=== PATIENT | female | born 1990 | race Caucasian/White ===

== ENCOUNTER 2017-01-22 08:54 | Day surgery (SDC) | payer OTHER, SELFPAY ==
--- OUTSIDE RECORDS SUMMARY | 2017-01-22 09:04 | XMS | Continuity of Care Document ---
:1990 Author Organization [facility] Care Team Providers Name Role Phone ARNOLDO KERR Primary Care Physician Unavailable Insurance Providers Payer Name Policy Number Subscriber Name Relationship MEDICAID PENDING BHARAT BONNER SELF/SAME PATIENT JOELLEN CARE PENDING BAHRAT BONNER SELF/SAME PATIENT Advance Directives Directive Response Recorded Date/Time Advance Directive? N 12/03/15 10:38am Living Will? N 12/03/15 10:38am Health Care Proxy? N 12/03/15 10:38am Healthcare Power of Counter Helper? N 12/03/15 10:38am Is the patient an Organ Donor? N 12/03/15 10:38am Chief Complaint and Reason for Visit Reason for Visit VAG BLEEDING [id number] Problems Active Medical Problems Problem Onset Date Recorded Date Status Vaginal bleeding, abnormal Unknown 12/03/15 Active Medications Current Home Medications Medication Dose Units Route Directions Days/Qty Instructions Start Date No Current Medications (NO CURRENT MEDICATIONS) 1 EACH . Social History Query Response Start Date Stop Date Smoking Status: Unknown Hospital Discharge Instructions No hospital discharge instructions. Plan of Care Discharge Date 12/03/15 Disposition HOME/SELF CARE Condition at Discharge STABLE Instructions/Education Provided DI for Vaginal Bleeding Forms Provided Discharge Form Prescriptions See Medications Section Referrals ARNOLDO KERR - Additional Instructions/Education DRINK PLENTY OF WATER, FOLLOW UP WITH AN OB/ COMMUNITY DIETITIAN DOCTOR ON SATURDAY, NEGATIVE TEST, NO URINARY TRACT INFECTION, BLOOD LEVELS ARE NORMAL AND STABLE, RETURN TO ER FOR ANY CONCERNS Functional Status No functional status results. Allergies, Adverse Reactions, Alerts No known allergies. Immunizations No Known History of Immunizations. Vital Signs Vital Reading Collection Date/Time Result Blood Pressure 12/03/15 11:31am 125/85 Patient Temperature 12/03/15 11:31am 97.4 Temperature Source 12/03/15 9:58am Tympanic Pulse Rate 12/03/15 11:31am 86 Bedside Pulse Oximetry 12/03/15 11:31am 98 Height 12/03/15 9:58am 152.40 cm Height 12/03/15 9:58am 5 ft 0.00 in Weight 12/03/15 9:58am 68.039 kg Weight 12/03/15 9:58am 150 lb 0.00 oz Body Mass Index 12/03/15 9:58am 29.3 Results Laboratory Results Test Name Result Units Flags Reference Collection Result Comments Date/Time Date/Time White Blood 8.9 K/uL 4.8-10.8 12/03/15 12/03/15 Count 10:21am 10:47am Red Blood Count 4.94 M/uL 3.70-5.40 12/03/15 12/03/15 10:21am 10:47am Hemoglobin 14.4 g/dL 12.0-16.0 12/03/15 12/03/15 10:21am 10:47am Hematocrit 41.9 % 37.0-47.0 12/03/15 12/03/15 10:21am 10:47am Mean 84.8 fl 80.0-100.0 12/03/15 12/03/15 Corpuscular 10:21am 10:47am Volume Mean 29.2 pg 27.0-31.0 12/03/15 12/03/15 Corpuscular 10:21am 10:47am Hemoglobin Mean 34.4 g/dL 32.0-36.0 12/03/15 12/03/15 Corpuscular Hgb 10:21am 10:47am Concent Diff Red Cell 14.0 % 11.5-14.5 12/03/15 12/03/15 Distribution 10:21am 10:47am Width Platelet Count 359 K/uL 130-400 12/03/15 12/03/15 10:21am 10:47am Mean Platelet 8.4 fl 12/03/15 12/03/15 Volume 10:21am 10:47am Granulocytes 63.7 % 50.0-75.0 12/03/15 12/03/15 (%) 10:21am 10:47am Lymphocytes % 27.1 % 20.0-40.0 12/03/15 12/03/15 10:21am 10:47am Monocytes % 5.0 % 0.0-15.0 12/03/15 12/03/15 10:21am 10:47am Eosinophils % 3.7 % 0.0-10.0 12/03/15 12/03/15 10:21am 10:47am Basophils % 0.5 % 0.0-2.0 12/03/15 12/03/15 10:21am 10:47am Granulocytes # 5.7 K/uL 1.8-6.4 12/03/15 12/03/15 10:21am 10:47am Lymphocytes # 2.4 K/uL 1.2-3.6 12/03/15 12/03/15 10:21am 10:47am Monocytes # 0.4 K/uL 0.3-0.9 12/03/15 12/03/15 10:21am 10:47am Eosinophils # 0.3 K/ul 0.0-0.5 12/03/15 12/03/15 10:21am 10:47am BASO # 0.0 K/uL 0.0-0.2 12/03/15 12/03/15 10:21am 10:47am Manual NO 12/03/15 12/03/15 Differential 10:21am 10:47am Urine HCG, NEGATIVE NEGATIVE 12/03/15 12/03/15 If a negative result is obtained but is Qualitative 10:04am 10:18am suspected, hCG levels may be too low or urine may be too dilute for detection. Another specimen should be collected after 48-72 hours and tested. If waiting is not medically advisable, the test result should be confirmed with a quantitative hCG test. Urine Color YELLOW YELLOW 12/03/15 12/03/15 10:04am 10:29am Urine CLEAR CLEAR 12/03/15 12/03/15 Appearance 10:04am 10:29am Urine Glucose NEGATIVE mg/dL NEGATIVE 12/03/15 12/03/15 10:04am 10:29am Urine Bilirubin NEGATIVE NEGATIVE 12/03/15 12/03/15 10:04am 10:29am Urine Ketones NEGATIVE NEGATIVE 12/03/15 12/03/15 10:04am 10:29am Urine Specific 1.010 1.002-1.030 12/03/15 12/03/15 [place] 10:04am 10:29am Urine Blood MODERATE A NEGATIVE 12/03/15 12/03/15 10:04am 10:29am Urine pH 6.5 4.5-8.0 12/03/15 12/03/15 10:04am 10:29am Urine Protein NEGATIVE mg/dL NEGATIVE 12/03/15 12/03/15 10:04am 10:29am Urine 0.2 E.U./dL 0.2 12/03/15 12/03/15 Urobilinogen 10:04am 10:29am Urine Nitrite NEGATIVE NEGATIVE 12/03/15 12/03/15 10:04am 10:29am Urine Leukocyte NEGATIVE NEGATIVE 12/03/15 12/03/15 Esterase 10:04am 10:29am Urine YES NO 12/03/15 12/03/15 Microscopic 10:04am 10:29am Indicated Procedures No Known History of Procedures. Encounters Encounter Location Arrival/Admit Date Discharge/Depart Date Attending Provider Departed [place] 12/03/15 9:51am 12/03/15 11:31am Joe Zavala [facility] Encounter Diagnosis Abnormal vaginal bleeding
[2017-01-22 09:35] LABS: Bilirubin Negative (Negative); Blood, Urine Trace (Negative); Glucose, Urine (Dipstick) Negative (Negative); Ketone, Urine Negative (Negative); Nitrite Negative (Negative); Protein, Urine (Dipstick) Negative (Neg-Trace); Urobilinogen 0.2 mg/dL (0.2-1.0)
[2017-01-22 09:46] LABS: Bacteria/HPF 3+ HPF (None Seen); RBC/HPF 0-3 HPF (0-3)
[2017-01-22 09:46] LABS: ALT (SGPT) 10 U/L (8-55); AST (SGOT) 14 U/L (5-34); Alkaline Phosphatase 56 U/L (40-150); Anion Gap 11 mmol/L (10-20); BUN (Urea Nitrogen) 7 mg/dL (7.0-18.7); Bilirubin, Total 0.6 mg/dL (0.2-1.2); Calc. Creatinine Clearance 0 mL/min (70-130); Calcium 9.3 mg/dL (7.8-10.44); Carbon Dioxide 27 mmol/L (22-29); Chloride 104 mmol/L (98-107); Estimated GFR-MDRD Greater than 90; Globulin 2.7 g/dL (2.4-3.5); White Blood Cell (WBC) Count 22.5 thou/uL (4.8-10.8)
[2017-01-22 09:47] LABS: Band 2 % (5-11); Neutrophil 86 % (42-75)
[2017-01-22 09:47] LABS: Hyaline Casts/LPF 0-3 HYALINE CAST LPF (0-3 Hyaline)
[2017-01-22] MEDS ORDERED: Ondansetron HCl/PF 4 MG/2 ML Vial ONE ×2 (09:53→13:33)
--- NOTE | 2017-01-22 11:32 | CT ---
ABDOMEN AND PELVIC CT SCAN WITH IV CONTRAST: Date: 01/22/17 HISTORY: 26-year-old female with right lower quadrant abdominal pain since this morning. Prior history of jogre lonephritis. FINDINGS: Lung bases are clear. Visualized liver, pancreas, spleen, and adrenal glands are unremarkable. The g allbladder has numerous gallstones within it, but without evidence for pericholecystic fluid or wall thickening. No renal calculi or acute obstruction. The cecal tip and origin of the appendix is a bnormally thickened with thick-walled appendix measuring approximately 0.8 cm in outer dimension wit hout evidence for air within the appendix. No obvious abscess, but findings are certainly concerning for acute appendicitis. Bilateral status post Essure fallopian tube surgical changes. Minimal cul-d e-sac fluid. No bowel obstruction, abscess, or adenopathy. IMPRESSION: Abnormal thickening of the cecal tip and appendix measuring up to 0.8 cm in outer dimension without evidence of air. No associated abscess. This is evidence for acute appendicitis. Multiple gallstones without gallbladder wall thickening or significant ductal dilatation. Other findings as above. Findings were discussed with Dr. Manuel at 1012 hours. CODE CR. POS: [facility]
--- NOTE | 2017-01-22 11:33 | ULT ---
COMPLETE PELVIC ULTRASOUND INCLUDING TRANSADOMINAL AND TRANSVAGINAL VASCULAR DUPLEX WITH COLOR AND SPECTRAL DOPPLER IMAGING: History: 26-year-old female with pelvic pain. FINDINGS: The uterus measures 9.9 x 4.6 x 5.5 cm. Endometrium is 0.7 cm. Right ovary 1.6 x 3.2 x 3.0 cm. The l eft ovary 1.9 x 2.8 x 2.9 cm. Vascular duplex demonstrates arterial end flow and venous outflow to both ovaries. No evidence for o varian torsion. No abscess or abnormal fluid collection. IMPRESSION: Unremarkable pelvic ultrasound. POS: [facility]
--- NOTE | 2017-01-22 12:13 | HP ---
HISTORY OF PRESENT ILLNESS: This is a 26-year-old woman who presented to Emergency Depart ment in [place] with insidious onset periumbilical abdominal pain, which started at 0400 hours today. The pain is described as sharp and occasionally crampy, associated with multiple episodes of nausea and nonbilious emesis. The patient was transferred to [facility] in [place], [place]. She arrives hemodynamically stable. She denies any fevers or chills. She denies any diarrhea. PAST MEDICAL HISTORY: Essentially unremarkable. PAST SURGICAL HISTORY: Pertinent for some surgery to her left hand at age 6. She denies any surger y to her abdomen or chest. 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 She adm its to smoking cigarettes about half pack a day and has done so for over 10 years. She admits to oc casional intake of ethanol in moderate amounts and denies any illicit drug abuse. PREHOSPITAL MEDICATIONS: None. ALLERGIES: Patient denies any known drug allergies. FAMILY HISTORY: Notable for maternal grandmother with both breast and cervical cancer. Various members of extended family have diabetes mellitus. Denies any family history of heart disea se or inflammatory bowel disease. REVIEW OF SYSTEMS: Ten-point review of systems essentially unremarkable except for as stated in pas t medical history and chief complaint. PHYSICAL EXAMINATION: GENERAL: This reveals a 26-year-old normally developed woman who is otherwise coherent and interact kolby and appears stated age. The patient is alert and oriented x3, appears to be in no acute distres s at the time of my evaluation. VITAL SIGNS: Includes blood pressure 123/72, pulse 89, respiration is 16 and oxygen saturation is 1 00% on room air. HEENT: Reveals normocephalic and atraumatic. Pupils are equal, round and reactive to light and acc ommodation. Extraocular muscles are intact bilaterally. No sclerae icterus is present. Oral mucos a is pink and moist. No lesions are noted. NECK: Supple. No palpable lymphadenopathy or thyromegaly present. HEART: Reveals regular rate and rhythm. No murmurs or gallops auscultated. LUNGS: Clear to auscultation bilaterally. Breathing is regular and unlabored. ABDOMEN: Soft with right lower quadrant tenderness at McBurney's. She has a positive Rovsing sign. Liver and spleen are nonpalpable below costal margins. EXTREMITIES: Reveals 2+ radial and pedal pulses bilaterally. No ankle edema is present. NEUROLOGIC: Reveals no focal deficits present. PERTINENT LABORATORY FINDINGS: Today, includes CBC with 22,500 white blood cells, hemoglobin 14.5, hematocrit is 44.0 and platelet count is 332,000. Metabolic profile: Sodium 138, potassium is 3.6, chloride is 104, bicarbonate 27, BUN 7, creatinine 0.74, glucose 127. AST and ALT normal at 14 and 10 respectively. IMAGING DATA: I have personally reviewed the CT scan of the abdomen and pelvis, which reveals a dil ated appendix with periappendiceal fat stranding and also noted multiple intraluminal gallstones of cholesterol type. IMPRESSION: 1. Acute appendicitis. 2. Asymptomatic cholelithiasis. RECOMMENDATIONS: 1. Laparoscopic cholecystectomy. 2. No indications for cholecystectomy at this time. 3. Above findings and recommendations have been discussed with the patient and her mother at [facility]. I have informed them of the risk and benefits of the proposed surgery. Risks include, but not l imited to bleeding, infection, injury to bowel or surrounding structures. This information was give n to the patient also present was the patient's nurse. The patient indicates understanding of the i nformation given. I answered her questions. The patient has granted consent for this admission and surgical intervention.
[2017-01-22] MEDS ORDERED: Midazolam HCl 2 mg/2 ml Vial ONE ×2 (12:44→13:07)
[2017-01-22] MEDS ORDERED: Fentanyl 100 MCG/2 ML VIAL ONE (13:07)
[2017-01-22] MEDS ORDERED: Lidocaine 2% w/Epinephrine 1:200K 20 ML VIAL ONE (13:08)
[2017-01-22] MEDS ORDERED: Bupivacaine PF 0.5% 30 ML VIAL ONE (13:08)
[2017-01-22] MEDS ORDERED: diphenhydrAMINE 50 MG/ML VIAL ONE (13:33)
[2017-01-22] MEDS ORDERED: Glycopyrrolate 0.2 MG/ML 5 ML SYRINGE ONE (13:33)
[2017-01-22] MEDS ORDERED: Propofol 200 MG/20 ML VIAL ONE (13:33)
[2017-01-22] MEDS ORDERED: Dexamethasone 20 MG/5 ML VIAL ONE (13:33)
[2017-01-22] MEDS ORDERED: Lidocaine 1% PF 5 ML VIAL ONE (13:33)
[2017-01-22] MEDS ORDERED: Metoclopramide HCl 10 MG/2 ML VIAL ONE (13:33)
[2017-01-22] MEDS ORDERED: Succinylcholine Chloride 20 MG/ML 10 ml SYRINGE FS ONE (13:33)
[2017-01-22] MEDS ORDERED: Ketorolac Tromethamine 30 MG/ML VIAL ONE (13:33)
[2017-01-22] MEDS ORDERED: ERTAPENEM IVPB SCH (13:45)
[2017-01-22] MEDS ORDERED: SODIUM CHLORIDE IVPB SCH (13:45)
[2017-01-22] MEDS ORDERED: ADMIXTURE FEE IVPB SCH (13:45)
[2017-01-22] MEDS ORDERED: Meropenem 1 GM, Admixture Fee 1 EACH in Sterile Water 20 ML SLOW IVP SCH (14:00)
[2017-01-22] MEDS ORDERED: ISOVUE-370 76%-LOCM 1 ML ONE (15:51)
--- NOTE | 2017-01-22 15:54 | OP ---
DATE OF OPERATION: 01/22/2017 PREOPERATIVE DIAGNOSIS: Acute appendicitis. POSTOPERATIVE DIAGNOSIS: Acute appendicitis. OPERATION PERFORMED: Laparoscopic appendectomy. SURGEON: Mamadou Pelletier D.O. ANESTHESIA: General endotracheal. ESTIMATED BLOOD LOSS: 5 mL. FLUIDS GIVEN: 1400 mL crystalloids. SPONGE AND INSTRUMENT COUNT: Certified as correct x2. COMPLICATIONS: None apparent at the time of operation. INDICATIONS FOR OPERATION: A 26-year-old woman presented with abdominal pain. Clinical and radiographic examination was consistent with acute appendicitis for which the patient i s brought to the operating room for appendectomy. Findings are consistent with suppurative, but nonperforated appendix in the usual anatomic location. DESCRIPTION OF OPERATION: Informed consent obtained from the patient who was brought to the operati ng room and placed in a supine position. Following general anesthesia, abdomen is sterilely prepped and draped in the usual fashion. The skin below the umbilicus was infiltrated with 0.25% Marcaine with epinephrine. Small curvilinear infraumbilical incision was then made using an 11 scalpel. Umb ilical stalk was grasped with Santy and elevated. Veress needle was then inserted through this inc ision and placed in the peritoneal cavity through which the abdomen was insufflated with 2.5 liters of CO2 gas. Intraabdominal pressure was noted at 2 mmHg. Following abdominal insufflation, Veress needle was removed and a 5 mm trocar was introduced using a Visiport under laparoscopy. Laparoscopy revealed the right lower quadrant partially encased by omental adhesions. Under direct laparoscopy , a 5 mm suprapubic and 12 mm left lower quadrant ports were placed after the overlying skin was inf iltrated with 0.25% Marcaine with epinephrine and appropriate incisions made. The patient was place d in a Trendelenburg position and rotated to her left. Using a [place] dissector from the left low er quadrant port site, the omental adhesions were bluntly taken down to reveal a suppurative appendi x in the usual anatomic location. Endo Fartun forceps was introduced through the suprapubic port s ite grasping the appendix which was elevated. I then used a [place] dissector to create a rent thr ough the mesoappendix at the base. Endo-[place] with a blue load was then used to divide the appendix a t the appendicocecal junction. Using a white load of the Endo-[place], mesoappendix was divided at the base with good hemostasis. The appendix is delivered of the abdominal cavity using an EndoCatch. O perative site was inspected for good hemostasis. Finding no other pathology, laparoscopy was termin ated. Fascia of the left lower quadrant port site was closed using 0 Vicryl suture and Endo closure device under laparoscopy. The abdomen was desufflated. All ports and instruments removed and acco unted for. Skin incisions are then closed using 4-0 Monocryl suture in subcuticular fashion. Gustavus polanco was applied to the incisions. The patient tolerated this operation without any apparent compli cation and was returned to recovery room in satisfactory condition.
[2017-01-22] MEDS ORDERED: traMADol HCl 50 MG TAB ONE (16:08)
[2017-01-22] MEDS ORDERED: Ibuprofen 600 MG TAB PO PRN (16:35)
== END 2017-01-22 17:20 | disposition home or self-care (01) ==
LOC: ERS 08:54 → SDC/OP 12:42
PROVIDERS: ATTEND Surgery
PROC: 0DTJ4ZZ Resection of Appendix, Percutaneous Endoscopic Approach (ICD-10-PCS; principal; 2017-01-22)
DX: K35.80 Unspecified acute appendicitis (principal); F17.210 Nicotine dependence, cigarettes, uncomplicated; K80.20 Calculus of gallbladder without cholecystitis without obstruction; Z98.890 Other specified postprocedural states
CPT/HCPCS: 74177; 76856; 80053; 81003; 81015; 81025; 85025; 87086; 88304; 96361; 96374; 99406; A4216; J0131; J1100; J1200; J1335; J1885; J2001; J2185; J2250; J2405; J2704; J2765; J3010; J7050; S0020